=== PATIENT | female | born 1970 | race Two or more races ===

== ENCOUNTER 2017-04-19 19:33 | Emergency (ER) | payer OTHER ==
[2017-04-19 19:53] LABS: PLATELET COUNT 251 10^3/uL (150-400)
[2017-04-19] MEDS ORDERED: KETOROLAC 15 MG/1 ML SDV IVP ONE (20:22)
--- NOTE | 2017-04-19 20:22 | EDPHY ---
H & P <MieshaFranc Alberto - Last Filed: 04/20/17 20:55> Stated Complaint: Flank Pain - HX of Kidney Stones - Personal History LMP (Females 10-55): IUD In Place Current Tetanus/Diphtheria Vaccine: Unsure Current Tetanus Diphtheria and Acellular Pertussis (TDAP): Unsure - Medical/Surgical History Hx Asthma: No Hx Chronic Respiratory Disease: No Hx Diabetes: No Hx Cardiac Disease: No Hx Renal Disease: No Hx Cirrhosis: No Hx Alcoholism: No Hx HIV/AIDS: No Hx Splenectomy or Spleen Trauma: No Other PMH: Kidney Stones - Social History Smoking Status: Never smoked <Rosemarie Hernandez - Last Filed: 04/23/17 09:19> Time Seen by Provider: 04/19/17 20:10 HPI/ROS: CHIEF COMPLAINT: Left flank pain HISTORY OF PRESENT ILLNESS: The patient is a 47 y/o female with a history of kidney stones complaining of severe left flank pain worsening over the last 24 hours. The left flank pain progressively worsened this afternoon and is now radiating to the LLQ. Unable to get comfortable. Associated with multiple episodes of vomiting. EMS administered 12.5mg IV Phenergan, 4mg IV Zofran, 500mL IV NS, and 10mg IV morphine en route. Patient required supplemental O2 on arrival due to decreased respiratory drive. She is very drowsy upon assessment and requiring 5lpm O2 to maintain saturation. Majority of history obtained from her family member at bedside. Patient is still complaining of pain when she is awake. She denies dysuria, hematuria, or fever. REVIEW OF SYSTEMS: Constitutional: No fever, no chills Eyes: No visual changes ENT: No sore throat Respiratory: No cough, no shortness of breath Cardiac: No chest pain Gastrointestinal: see HPI Genitourinary: No hematuria, no dysuria Musculoskeletal: No leg pain or swelling Skin: No rash Neurological: No headache, no weakness Psychiatric: No depression (Rosemarie Hernandez) - Medical/Surgical History PMH: Kidney stones (Rosemarie Hernandez) - Social History Additional Social History: Friend at bedside. Visiting from [place]. (Rosemarie Hernandez) - Physical Exam Exam: General Appearance: Somnolent, no distress Eyes: Pupils equal and round, no conjunctival pallor or injection ENT, Mouth: Mucous membranes moist Neck: Normal inspection Respiratory: Lungs are clear to auscultation Cardiovascular: Regular rate and rhythm Gastrointestinal: Abdomen is soft and non- tender Back: Left CVA tenderness Neurological: Drowsy, nonfocal Skin: Warm and dry, no rash Extremities: Nontender, no pedal edema Psychiatric: Mood and affect normal (Rosemarie Hernandez) Constitutional: Initial Vital Signs Temperature (C) 36.8 C 04/19/17 19:46 Heart Rate 82 04/19/17 19:46 Respiratory Rate 18 04/19/17 19:46 Blood Pressure 120/74 04/19/17 19:46 O2 Sat (%) 98 04/19/17 19:46 O2 Delivery Mode Nasal Cannula O2 (L/minute) 2 Allergies/Adverse Reactions: No Known Allergies Allergy (Unverified 04/19/17 19:46) Home Medications: Medication Instructions Recorded Hydrocodone/APAP 5/325 [[place] 1 - 2 tab PO Q4H PRN #10 tab 04/19/17 5/325] Ketorolac Tromethamine 10 mg PO Q6H #10 tab 04/19/17 Ondansetron Odt [Zofran Odt 4 mg 4 mg PO Q4 PRN #20 tab 04/19/17 (RX)] Tamsulosin HCl [Flomax] 0.4 mg PO DAILY #10 cap 04/19/17 Medical Decision Making - Diagnostics Imaging: Discussed imaging studies w/ banquet server on call Radiologist <Franc Whiteside - Last Filed: 04/20/17 20:55> - Diagnostics Imaging: Discussed imaging studies w/ banquet server on call Radiologist, I viewed and interpreted images myself <Rosemarie Hernandez - Last Filed: 04/23/17 09:19> - Diagnostics Imaging Results: CT reveals 3mm left UVJ stone with hydronephrosis (Rosemarie Hernandez) ED Course/Re-evaluation: 10:45 p.m. I spoke with the patient. She is now more alert. She is not desaturating. We discussed pain control at home and. Patient and her friend understand and agree with this plan. We discussed her liver lesion. She states that her doctor and present all has been following it. (Franc Whiteside) This is a 47 y/o female with a history of kidney stones who presents with a 24- hour history of worsening left flank pain with associated vomiting. She has left CVA tenderness on exam. She is quite somnolent after prehospital morphine and Phenergan and minimally participates in history or exam. Needs supplemental oxygen to maintain normal O2 saturation. Plan for IV, labs, UA, abdominal CT, and symptom management. 30mg IV Toradol given. 1844: remains quite sleepy, pain improved, will cont to observe. 2109: CT shows right ureteral calculus, 4mm left UVJ. She remains very somnulent. Will need to observe her in the ED until she wakes up. Plan for discharge home with standard kidney stone care and follow up instructions and script for [place]. Signed over to Dr. Whiteside at shift change to reassess her once she is awake and to repeat the d/c instructions. (Rosemarie Hernandez) Differential Diagnosis: Differential diagnosis includes though it is not limited to appendicitis, cholecystitis, diverticulitis, pyelonephritis, bowel perforation, small bowel obstruction. (Rosemarie Hernandez) - Data Points Laboratory Results: Laboratory Results 04/19/17 19:30 04/19/17 19:30 Medications Given: Discontinued Medications Hydrocodone Bitart/Acetaminophen ([place] 5/325mg Prepack#6) 1 btl TAKEHOME EDNOW ONE Stop: 04/19/17 21:29 Last Admin: 04/19/17 23:21 Dose: 1 btl Ketorolac Tromethamine (Toradol) 30 mg IVP EDNOW ONE Stop: 04/19/17 20:23 Last Admin: 04/19/17 20:32 Dose: 30 mg Departure <Franc Whiteside - Last Filed: 04/20/17 20:55> <Rosemarie Hernandez - Last Filed: 04/23/17 09:19> - Departure Disposition: Home, Routine, Self-Care Clinical Impression: Kidney stone Condition: Good Instructions: Hydrocodone/Acetaminophen (By mouth), Kidney Stones (ED) Additional Instructions: 1. Take 600mg ibuprofen every 6-8 hours as needed for pain over the next few days. You received a similar medication here tonight, so you should not take a dose of ibuprofen until tomorrow. 2. Use [place] as prescribed as needed for severe pain. 3. Follow up with your urologist next week. You've been referred to Dr. Vieyra locally if needed. 4. Return to the ED for worsening of condition. 5. [place] 1 tablet every 4 hours as needed for pain. Referrals: Magdy Vieyra MD [Medical Doctor] - As per Instructions Prescriptions: Hydrocodone/APAP 5/325 [[place] 5/325] 1 - 2 tab PO Q4H PRN #10 tab PRN Reason: Pain, Moderate Ketorolac Tromethamine 10 mg PO Q6H #10 tab Ondansetron Odt [Zofran Odt 4 mg (RX)] 4 mg PO Q4 PRN #20 tab PRN Reason: Nausea & Vomiting Tamsulosin HCl [Flomax] 0.4 mg PO DAILY #10 cap <Franc Whiteside - Last Filed: 04/20/17 20:55> Report Scribed for: Rosemarie Hernandez Report Scribed by: Vaishnavi Kennedy Date of Report: 04/19/17 Time of Report: 20:22 <Rosemarie Hernandez - Last Filed: 04/23/17 09:19> Physician Review and Approval Statement: 04/19/17 20:22 Portions of this note were transcribed by a medical liaison. I personally performed a history, physical exam, medical decision making, and confirmed accuracy of information the transcribed note. (Rosemarie Hernandez)
[2017-04-19] MEDS ORDERED: HYDROCOD/APAP 5/325 PREPACK#6 BTL TAKEHOME ONE (21:28)
[2017-04-19 22:40] VITALS: BP 114/74; PULSE 70; RESP 20; O2SAT 97
[2017-04-19 23:28] VITALS: TEMP 98.1
== END 2017-04-19 23:34 | disposition home or self-care (01) ==
DX: N20.0 Calculus of kidney (principal)
CPT/HCPCS: 82947-QW; 96374; J1885